=== PATIENT | male | born 1950 | race Caucasian/White ===

== ENCOUNTER 2023-04-12 12:14 | Emergency (ER) | payer MEDICARE ==
[~2023-04-12] VITALS: Ht 193 cm; Wt 86.2 kg
[2023-04-12] MEDS ORDERED: LEVO75TA7 PO (12:33)
[2023-04-12 12:43] LABS: BASOPHILS # (AUTO) 0.1 K/UL (0.0-0.2); BASOPHILS % (AUTO) 0.4 % (0.0-2.0); EOSINOPHILS % (AUTO) 0.3 % (0.0-7.0); HEMATOCRIT 36.7 % (36.7-47.1); HEMOGLOBIN 12.3 g/dL (12.5-16.3); LYMPHOCYTES # (AUTO) 0.5 K/uL (0.8-4.8); LYMPHOCYTES % (AUTO) 3.4 % (20.5-51.5); MEAN CORPUSCULAR HEMOGLOBIN 31.4 uug (23.8-33.4); MEAN CORPUSCULAR HGB CONC 33 g/dL (32.5-36.3); MONOCYTES % (AUTO) 6.8 % (0.0-11.0); NEUTROPHILS # (AUTO) 13.4 K/uL (1.8-8.9); NEUTROPHILS % (AUTO) 89.1 % (38.5-71.5); PLATELET COUNT (AUTO) 409 K/uL (152-348); RED BLOOD CELL COUNT(AUTO) 3.91 MIL/uL (4.06-5.63); RED CELL DISTRIBUTION WIDTH 15.2 % (12.1-16.2)
[2023-04-12 12:54] LABS: CALCIUM 9.5 mg/dL (8.5-10.1); CARBON DIOXIDE 26 mmol/L (21-32); CHLORIDE 98 mmol/L (98-107); GLUCOSE 123 mg/dL (74-106); POTASSIUM 4.3 mmol/L (3.5-5.1); SODIUM SERUM 132 mmol/L (136-145); UREA NITROGEN, BLOOD 24 mg/dL (7-18)
[2023-04-12 12:56] LABS: DIFFERENTIAL COMMENT 1
[2023-04-12 13:07] LABS: ALANINE AMINOTRANSFERASE 84 U/L (16-63); ALBUMIN 2.4 g/dL (3.4-5.0); ALKALINE PHOSPHATASE 128 U/L (50-136); ASPARTATE AMINOTRANSFERASE 39 U/L (15-37); BILIRUBIN,DIRECT 0.1 mg/dL (0.0-0.2); BILIRUBIN,TOTAL 0.5 mg/dL (0.2-1.0); NT-PRO BNP 883 pg/mL (0-125); TOTAL PROTEIN, SERUM 7.7 g/dL (6.4-8.2)
[2023-04-12] MEDS ORDERED: IOHEXOL 350 100 ML INFUS..BTL ONE (13:49)
[2023-04-12] MEDS ORDERED: SWABABLE VALVE TRANSFER SET EA MC ONE (13:49)
[2023-04-12] MEDS ORDERED: IV NORMAL SALINE 250 ML IV ONE (13:49)
[2023-04-12] MEDS ORDERED: levoFLOXacin 750 MG TABLET ONE (18:11)
[2023-04-12] MEDS ORDERED: levoFLOXacin 750 MG TABLET PO ONE (18:15)
[2023-04-12 18:25] VITALS: BP 121/66; O2SAT 93
== END 2023-04-12 18:26 | disposition left against medical advice (07) ==
LOC: ER 12:14
DX: J18.9 Pneumonia, unspecified organism (principal); J90 Pleural effusion, not elsewhere classified; E03.9 Hypothyroidism, unspecified; Z88.8 Allergy status to other drugs, medicaments and biological substances; Z79.899 Other long term (current) drug therapy
CPT/HCPCS: 99291; 71275; 80076; 80048; 83880; 85025; 85379; 85730; 87040 ×2; 84484; 36415; 93005; 71045; 83605; Q9967; A4663